=== PATIENT | male | born 1985 | race Caucasian/White ===

== ENCOUNTER 2024-05-07 18:20 | Emergency (ER) | payer OTHER ==
[~2024-05-07] VITALS: Ht 172.7 cm; Wt 90.0 kg
[2024-05-07] MEDS ORDERED: CEFAZOLIN 1000MG PREMIX 50 ML IV ONE (19:00)
[2024-05-07] MEDS ORDERED: TETANUS, DIPHTHERIA, PERTUSSIS VAC/PF 0.5ML (>10YR OLD) IM ONE ×2 (19:00→21:00)
[2024-05-07] MEDS: MORPHINE SULFATE 4 MG/ML INJ (FOR IV/IM USE) IV STA ×3 (19:03→21:26)
[2024-05-07] MEDS: ONDANSETRON HCL 4MG/2ML INJ IV STA ×3 (19:03→21:26)
[2024-05-07] MEDS: CEFAZOLIN 1000MG PREMIX 50 ML IV NR (20:30)
[2024-05-07] MEDS: LIDOCAINE HCL/EPINEPHRINE 1%-EPI 1:100,000 20 ML VIAL INFIL NR (21:15)
[2024-05-07] MEDS: SODIUM CHLORIDE 0.9% 1,000 ML IV ONE (21:33)
[2024-05-07] MEDS: LIDOCAINE HCL/EPINEPHRINE 1%-EPI 1:100,000 20 ML VIAL INFIL ONE (21:51)
[2024-05-07] MEDS: ETOMIDATE 2MG/ML 10ML VIAL IV ONE (21:51)
[2024-05-07 22:32] VITALS: O2SAT 100
[2024-05-07] MEDS: ACETAMINOPHEN 1000MG/100ML 100 ML IV ONE (23:59)
[2024-05-07] MEDS: ONDANSETRON HCL 4MG/2ML INJ IV ONE (23:59)
[2024-05-07] MEDS: HYDROMORPHONE HCL/PF 2MG/ML CPJ IV ONE (23:59)
[2024-05-08] MEDS: TETANUS, DIPHTHERIA, PERTUSSIS VAC/PF 0.5ML (>10YR OLD) IM ONE
[2024-05-08 00:40] VITALS: BP 138/88; PULSE 70; RESP 15; TEMP 98.1
== END 2024-05-08 00:40 | disposition short-term general hospital (02) ==
LOC: ER 18:20
DX: S52.502B Unspecified fracture of the lower end of left radius, initial encounter for open fracture type I or II (principal); S52.602B Unspecified fracture of lower end of left ulna, initial encounter for open fracture type I or II; W18.39XA Other fall on same level, initial encounter; Y93.89 Activity, other specified; Y92.89 Other specified places as the place of occurrence of the external cause; Y99.8 Other external cause status
CPT/HCPCS: 25605; 73060; 73070; 73090; 73120; 90715; 99152; 99285; 96361; 96365; 96375; 12001; 90471; J0690; J3490 ×2; J2405; J1170; J2270; J7030; A4565; J0131